=== PATIENT | male | born 1965 | race Caucasian/White ===

== ENCOUNTER 2019-01-10 22:36 | Inpatient (IN) ==
--- NOTE | 2019-01-10 22:43 | PROVIDER DOCUMENTATION ---
HPI-Respiratory General - General Stated Complaint: sob Time Seen by Provider: 01/10/19 22:40 Source: patient, EMS Allergies/Adverse Reactions: Patient Allergies Allergy/AdvReac Type Severity Reaction Status Date / Time No Known Allergies Allergy Verified 01/10/19 23:55 Home Medications: Home Medication List Medication Instructions Recorded Confirmed Last Taken Type Aspirin 325 mg PO DAILY 12/24/18 01/10/19 Unknown History Oxycodone HCl/Acetaminophen 1 tab PO 4XDAY PRN PRN 12/24/18 01/10/19 Unknown History [Percocet 10-325 mg Tablet] - History of Present Illness-Resp Nature of Presenting Problem: 53 YO M with CAD and stent placement presents with acute onset ShOB while lying in bed. He states he called EMS. 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 He denies any recent sick contacts or having these type of symptoms before. He denies chest pain, but states he cannot catch his breath. With EMS, he had low o2 sats in mid 80s and was placed on nonrebreather which improved sats. Pt complaining of pain in right hip that is chronic. he states he takes norco 10, for which he has been on pain meds for more than 25 years. Cough Quality/Degree: reports: no cough Episode Frequency: no prior episodes Current Respiratory Medication Therapy: Initiated none Modifying Factors: improves with: nothing Associated Symptoms: reports: shortness of breath. denies: cough, dizziness, facial pain, fever/chills, headache Similar Symptoms Previously?: No Recently seen or treated by another doctor?: No Review of Systems - Adult - REVIEW OF SYSTEMS - ADULT Constitutional: denies: chills, fever Eyes: reports: no symptoms reported Ears, Nose, Mouth & Throat: reports: no symptoms reported Cardiovascular: reports: no symptoms reported Respiratory: reports: shortness of breath, wheezing. denies: cough Gastrointestinal: reports: no symptoms reported Genitourinary: reports: no symptoms reported Musculoskeletal: reports: no symptoms reported Integumentary: reports: no symptoms reported Neurological: reports: no symptoms reported Past History - Adult - PAST MEDICAL HISTORY-ADULT Review of Records: reports: Old Records Reviewed Major Childhood Illnesses: reports: denies history Cardiovascular: reports: HTN (uncontrolled) Respiratory: reports: denies history Gastrointestinal: reports: denies history Obstetrical/Gynecological: reports: denies history Genitourinary: reports: denies history Musculoskeletal: reports: denies history Neurological: reports: denies history Endocrine/Immune: reports: denies history Other Conditions: reports: denies history - PRIOR SURGERIES/PROCEDURES Surgical/Procedure History: reports: cardiac stent. denies: recent surgery - IMMUNIZATION STATUS Childhood Immunizations: See Nurse Assessment Flu Vaccine: See Nurse Assessment - FAMILY HISTORY Family History: reviewed, not pertinent - SOCIAL HISTORY Smoking: cigarettes, greater than 1 pack/day Substance Use: denies Physical Exam-General - PHYSICAL EXAM-ADULT Initial Vital Signs Reviewed: Yes - CONSTITUTIONAL General Appearance: moderate distress - EYES Eyes: PERRL/EOMI, pink conjunctivae - NECK Neck: full range of motion, supple, normal inspection - RESPIRATORY Respiratory: respiratory distress, accessory muscle use, stridor, wheezing - CARDIOVASCULAR Cardiovascular: no edema, tachycardia - GASTROINTESTINAL (ABDOMEN) Abdominal Exam: non tender, soft - MUSCULOSKELETAL Back Exam: normal inspection, no CVA tenderness Extremity: normal range of motion - SKIN Integumentary: normal color, normal turgor, warm/dry - NEUROLOGIC Neurologic: grossly normal - PSYCHIATRIC Psych/Mental Status: anxious Progress - PLAN OF CARE/RESULTS Progress/Plan/Lab Results: Vital Signs - 8 hr 01/10/19 22:36 01/10/19 22:40 01/10/19 22:41 Temperature 100.3 F H Pulse Rate 138 H 142 H 135 H Respiratory Rate 29 H 37 H 43 H Blood Pressure 156/102 156/102 O2 Sat by Pulse Oximetry 83 L 84 L 01/10/19 22:45 01/10/19 22:50 01/10/19 23:00 Temperature Pulse Rate 134 H 105 H 132 H Respiratory Rate 33 H 22 23 Blood Pressure O2 Sat by Pulse Oximetry 95 97 92 L 01/10/19 23:15 01/10/19 23:30 01/10/19 23:45 Temperature Pulse Rate 122 H 122 H 127 H Respiratory Rate 22 17 20 Blood Pressure O2 Sat by Pulse Oximetry 96 98 01/11/19 00:00 Temperature Pulse Rate 114 H Respiratory Rate 23 Blood Pressure O2 Sat by Pulse Oximetry 98 01/10/19 23:52 Influenza Screen - Final Nasopharyngeal Laboratory Results - last 24 hr 01/10/19 01/10/19 01/10/19 22:42 22:56 22:56 WBC RBC Hgb Hct MCV MCH MCHC RDW Std Deviation Plt Count MPV Immature Gran % (Auto) Neut % (Auto) Lymph % (Auto) [place] % (Auto) Eos % (Auto) Baso % (Auto) Immature Gran # (Auto) Neut # (Auto) Lymph # (Auto) [place] # (Auto) Eos # (Auto) Baso # (Auto) D-Dimer, Quantitative Specimen Type ARTERIAL Sample Site R RADIAL pH 7.47 H pCO2 33 L pO2 64 HCO3 25.4 Base Excess 0.9 Oxyhemoglobin 90.1 L ABG O2 Sat (Calculated) 17.2 ABG O2 Saturation 97.3 ABG Carboxyhemoglobin 6.50 H* ABG Methemoglobin 0.9 Lacho Test YES A-a O2 Difference 251.0 Total Hemoglobin 13.6 Lactate 2.20 Liter Flow 10.0 Blood Gas Modality COOL AEROSOL FiO2 % 50.0 Sodium Potassium Chloride Carbon Dioxide Anion Gap BUN Creatinine Estimated GFR/1.73 m2 BUN/Creatinine Ratio Glucose Calculated Osmolality Calcium Total Bilirubin AST ALT Alkaline Phosphatase Troponin T 0.016 Qki-N-Bgrybhyrojh Pept 3674 H Total Protein Albumin Globulin Albumin/Globulin Ratio TSH 01/10/19 01/10/19 01/10/19 22:56 22:56 22:56 WBC 12.10 H RBC 4.81 Hgb 13.6 L Hct 39.8 L MCV 82.7 MCH 28.3 MCHC 34.2 RDW Std Deviation 13.8 Plt Count 214 MPV 10.2 Immature Gran % (Auto) 0.4 Neut % (Auto) 67.9 Lymph % (Auto) 23.6 [place] % (Auto) 5.6 Eos % (Auto) 1.6 Baso % (Auto) 0.9 H Immature Gran # (Auto) 0.05 H Neut # (Auto) 8.22 H Lymph # (Auto) 2.85 [place] # (Auto) 0.68 H Eos # (Auto) 0.19 Baso # (Auto) 0.11 D-Dimer, Quantitative Specimen Type Sample Site pH pCO2 pO2 HCO3 Base Excess Oxyhemoglobin ABG O2 Sat (Calculated) ABG O2 Saturation ABG Carboxyhemoglobin ABG Methemoglobin [place] Test A-a O2 Difference Total Hemoglobin Lactate Liter Flow Blood Gas Modality FiO2 % Sodium 137 Potassium 4.2 Chloride 97 L Carbon Dioxide 20 L Anion Gap 20 BUN 7 L Creatinine 0.9 Estimated GFR/1.73 m2 > 60 BUN/Creatinine Ratio 8 Glucose 174 H Calculated Osmolality 276 Calcium 8.0 L Total Bilirubin 0.26 AST 28 ALT 32 Alkaline Phosphatase 63 Troponin T Fth-O-Gdmhyecpkbq Pept Total Protein 6.5 Albumin 3.6 Globulin 2.9 Albumin/Globulin Ratio 1.2 TSH 0.88 01/10/19 22:56 WBC RBC Hgb Hct MCV MCH MCHC RDW Std Deviation Plt Count MPV Immature Gran % (Auto) Neut % (Auto) Lymph % (Auto) [place] % (Auto) Eos % (Auto) Baso % (Auto) Immature Gran # (Auto) Neut # (Auto) Lymph # (Auto) [place] # (Auto) Eos # (Auto) Baso # (Auto) D-Dimer, Quantitative 1.42 H Specimen Type Sample Site pH pCO2 pO2 HCO3 Base Excess Oxyhemoglobin ABG O2 Sat (Calculated) ABG O2 Saturation ABG Carboxyhemoglobin ABG Methemoglobin [place] Test A-a O2 Difference Total Hemoglobin Lactate Liter Flow Blood Gas Modality FiO2 % Sodium Potassium Chloride Carbon Dioxide Anion Gap BUN Creatinine Estimated GFR/1.73 m2 BUN/Creatinine Ratio Glucose Calculated Osmolality Calcium Total Bilirubin AST ALT Alkaline Phosphatase Troponin T Huc-V-Plwmftomftg Pept Total Protein Albumin Globulin Albumin/Globulin Ratio TSH Orders Category Date Time Status Cardiac Monitoring DIRECTED Care 01/10/19 22:49 Active CHEST-1 VIEW [RAD] Stat Exams 01/10/19 22:42 Taken CTA [CT ANGIOGRM PULMONARY ARTERIES] [CT] Stat Exams 01/10/19 23:17 Taken ABG [RESP] Routine Lab 01/10/19 22:42 Completed CBC WITH ELECTRONIC DIFF [HEME] Stat Lab 01/10/19 22:56 Completed COMPREHENSIVE METABOLIC PANEL [CHEM] Stat Lab 01/10/19 22:56 Completed D-DIMER [COAG] Stat Lab 01/10/19 22:56 Completed Flu Swab [INFLUENZA SCREEN A/B] Stat Lab 01/10/19 23:52 Completed PRO B-NATRIURETIC PEPTIDE Stat Lab 01/10/19 22:56 Completed TROPONIN T Stat Lab 01/10/19 22:56 Completed TSH Stat Lab 01/10/19 22:56 Completed 0.9% Sodium Chloride Inj [Ns] 1,000 ml Med 01/10/19 23:45 Discontinued IV 999 mls/hr Budesonide [Pulmicort] Med 01/10/19 22:47 Discontinued 0.5 mg INH NOW ONE Furosemide [Lasix] Med 01/11/19 01:34 Discontinued 40 mg IV NOW ONE Ipratropium [place] Neb [Atrovent Neb] Med 01/10/19 22:48 Discontinued 0.5 mg INH NOW ONE Levalbuterol Neb [Xopenex Neb] Med 01/10/19 22:47 Discontinued 1.25 mg INH NOW ONE Methylprednisolone Sod Succ [Solu-Medrol] Med 01/10/19 22:49 Discontinued 125 mg IV NOW ONE Sodium Chloride 0.9% Neb [Ns Neb] Med 01/10/19 23:00 Active 5 ml INH DIRECTED Aerosol Treatments Routine Oth 01/10/19 22:47 Completed Aerosol Treatments Stat Oth 01/10/19 22:47 Completed BIPAP Stat Oth 01/11/19 01:35 Active Oxygen Device Stat Oth 01/10/19 22:49 Completed EKG [EKG] Stat Ther 01/10/19 22:27 Ordered EKG [EKG] Stat Ther 01/10/19 22:42 Draft Patient signed out to me pending reeval. Patient on bipap. Requires admission for new onset CHF. Spoke to Dr Salazar,, avionics engineer for hospitalist who accepted rosa ent for admission. Further orders to be placed by their team. Result Diagrams: 01/10/19 22:56 01/10/19 22:56 - REASSESSMENT Reassessment #1 Time Reassessed: 23:58 Status: improving (pt states he is improving, HR down to 118, positive dimer, will get CTA-PE) - EKG 1 Time of EKG reading by physician:: 22:50 EKG Read and Signed by:: Sadaf Landin EKG Interpretation (*Must complete 3 of following elements*): Abnormal Rate: 129 Rhythm: sinus tachycardia [place]: normal QRS: normal [place] Interval: normal Prior EKG Comparison: no prior EKG (left ventricular enlargement) - CT/MRI 1 CT Study: Thorax Impression: See EMR Report (1. No central PE identified 2. No thoracic aortic aneurysm or dissection 3. small b/l pleural fluid collections seen within the fissures 4. ground glass opacity at the lung bases- pulm edema vs atypical pna 5. mediastinal and right hilar adenopathy 6. focal area of increased density with rounded contour in the posterior lateral aspect of right upper lobe, pulm nodule vs rounded airspace disease) - CONSULTS/PCP/HOSPITALIST Notification #1 *Consult/PCP/Hospitalist*: Dr Salazar Time Discussed: 02:34 Consult Disposition: Admit - CHANGE OF SHIFT REPORT (ED Provider) 1 Report Given and Care Transferred to:: transferred to Dr. Nina Time of Transfer: 02:03 Items Pending: Other (reevaluation) Departure - Departure Date of Disposition Decision: 01/11/19 Time of Disposition Decision: 02:33 DIAGNOSIS: Tachycardia, Tobacco dependence due to cigarettes, New onset of congestive heart failure CHF exacerbation Qualifiers: Heart failure type: systolic Qualified Code(s): I50.23 - Acute on chronic systolic (congestive) heart failure Disposition: ADMITTED INPATIENT 09 Certified Medical Emergency: Emergent Condition: Stable Referrals and Follow-Ups: None,PCP [Primary Care Provider] - - Critical Care Note This patient required my direct & personal management of CC.: Yes Total Time (mins): 75 Critical Care Statement: This patient required my direct personal management to treat or rule out processes, the absence of which, could potentiallly result in sudden, clinically significant life or limb threatening deterioration. Attestation - Physician/ PREETI Attestation Patient care was provided by Advanced Practice Provider:: No The physician spent face to face time with patient:: Yes Advanced Practice Provider documentation review:: Supervising physician onsite and consulted in the evaluation and care of this patient. The physician did have a face to face encounter with the patient.
[2019-01-10] MEDS ORDERED: PULMICORT INH ONE (22:47)
[2019-01-10] MEDS ORDERED: XOPENEX NEB INH ONE (22:47)
[2019-01-10] MEDS ORDERED: ATROVENT NEB INH ONE (22:48)
[2019-01-10] MEDS ORDERED: SOLU-MEDROL IV ONE (22:49)
[2019-01-10] MEDS ORDERED: NS NEB INH SCH (23:00)
[2019-01-10 23:04] LABS: ALLEN TEST YES; BE 0.9 mmoll (-3.0-3.0); BLOOD TYPE ARTERIAL; HCO3-(ACT) 25.4 mmoll (20.0-26.0); METHB 0.9 % (0.0-1.5); O2(CT) 17.2 mL/dL (15.0-23.0); O2HB 90.1 % (95.0-99.0); PCO2(98.6) 33 mmHg (35-45); PO2(98.6) 64 mmHg (60-100); SAMPLE BLOOD; SAO2 97.3 % (95.0-100.0); THB 13.6 g/dL (11.5-17.4); pH(98.6) 7.47 (7.35-7.45)
[2019-01-10 23:05] LABS: MODALITY COOL AEROSOL
--- NOTE | 2019-01-10 23:08 | EKG Report ---
Test Performed on : 01/10/2019 10:39:28 PM Test Reason : SOB Blood Pressure : / mmHG Vent. Rate : 129 BPM Atrial Rate : 129 BPM P-R Int : 138 ms QRS Dur : 096 ms QT Int : 298 ms P-R-T Axes : 052 008 072 degrees QTc Int : 436 ms Sinus tachycardia. Possible Left atrial enlargement Left ventricular hypertrophy with repolarization abnormality Anteroseptal infarct (cited on or before 19-NOV-2015) Abnormal ECG When compared with ECG of 19-NOV-2015 09:30, Questionable change in QRS axis ST no longer elevated in Lateral leads T wave inversion now evident in Lateral leads Unconfirmed Result
[2019-01-10 23:22] LABS: BASO# 0.11 X1000 (0.0-0.2); BASO% 0.9 % (0.0-0.8); EOS# 0.19 X1000 (0.0-0.7); EOS% 1.6 % (0.0-10.0); HEMATOCRIT 39.8 % (42.0-52.0); HEMOGLOBIN 13.6 g/dL (14.0-18.0); IMM GRAN# 0.05 X1000 (0.0-0.04); IMM GRAN% 0.4 % (0.0-0.5); LYMPH# 2.85 X1000 (1.2-3.4); LYMPH% 23.6 % (20.5-51.1); MCH 28.3 PG (27-31); MCHC 34.2 g/dL (33-37); MCV 82.7 FL (81-99); MONO# 0.68 X1000 (0.11-0.59); MONO% 5.6 % (1.7-9.3); MPV 10.2 FL (7.4-10.4); NEUT# 8.22 X1000 (1.4-6.5); NEUT% 67.9 % (42.2-75.2); PLT 214 X1000 (130-400); RBC 4.81 XMIL (4.7-6.1); RDW 13.8 % (11.5-14.5)
[2019-01-10] MEDS ORDERED: NS 1,000 ML IV ONE (23:45)
[2019-01-10 23:57] LABS: AGAP 20; ALB/GLOB RATIO 1.2; ALBUMIN 3.6 g/dL (3.5-5.0); ALKALINE PHOSPHATASE 63 U/L (32-122); BUN 7 mg/dL (8-22); CHLORIDE 97 mmol/L (98-107); COSMO 276; CREATININE 0.9 mg/dL (0.7-1.2); ESTIMATED GFR > 60; GLUCOSE 174 mg/dL (70-104); GOT 28 U/L (10-34); GPT 32 U/L (10-44); POTASSIUM 4.2 mmol/L (3.5-5.1); SODIUM 137 mmol/L (136-145); TCO2 20 mmol/L (25-35); TOTAL BILIRUBIN 0.26 mg/dL (0.20-1.00); TOTAL PROTEIN 6.5 g/dL (6.3-8.3)
[2019-01-11] MEDS ORDERED: LASIX IV ONE (01:34)
[2019-01-11] MEDS: LEVAQUIN 750 MG/D5W 750 MG/150 ML IVPB IV SCH (03:15)
[2019-01-11] MEDS: PERCOCET-10 PO PRN (03:16)
[2019-01-11] MEDS ORDERED: ZOFRAN IV PRN (04:09)
[2019-01-11] MEDS ORDERED: TYLENOL PO PRN (04:09)
[2019-01-11] MEDS ORDERED: LOVENOX SUBQ SCH ×2 (04:09→18:00)
--- NOTE | 2019-01-11 05:27 | HISTORY AND PHYSICAL ---
CHIEF COMPLAINT: Shortness of breath. HISTORY OF PRESENT ILLNESS: Mr. Spicer is a 53-year-old male who had shortness of breath that started around 45 minutes prior to arrival in the emergency room. He states that it was sudden onset, felt as if he could not catch his breath. He is a ioy-qgto-kmh-day smoker. Smoking cessation was gone over with the patient. He states that he does not want to quit. His other past medical history includes myocardial infarction with coronary artery disease, hypertension, hyperlipidemia and cardiac stenting. He also has arthritis that he sees a pain psychology clinician for. From my understanding, I do not believe he treats his high blood pressure or his high cholesterol. As noted, he does smoke still, has for many years. Chest x-ray was obtained in the emergency room. Appears to show increased pulmonary vascular congestion with possible multiple infiltrates. He had an elevated D-dimer so a pulmonary arteriogram was completed. This showed no central PE, no aortic aneurysm or dissection. Small bilateral pleural fluid collection seen within the fissures. Ground glass opacity at the lung bases. Pulmonary edema versus atypical pneumonia. There was also mediastinal and right hilar adenopathy as well as a right upper pulmonary nodule versus round airspace disease. At any rate, he was placed on BiPAP, was given a dose of Lasix and will be admitted for further evaluation and treatment. PAST MEDICAL HISTORY: See HPI. PREVIOUS SURGICAL HISTORY: Cardiac stenting. SOCIAL HISTORY: On disability. Smokes two packs per day. Has for years. Denies wanting to quit. No alcohol. No illicit drugs. Sees a pain clinic. Is on chronic opioid treatment. FAMILY HISTORY: Mother had arthritis. Father had myocardial infarction and coronary artery disease. ALLERGIES: No known drug allergies. HOME MEDICATIONS: Percocet 10 four times a day p.r.n. and aspirin 325 p.o. daily. REVIEW OF SYSTEMS: Fourteen point review of systems conducted with the patient. Pertinent positives listed above in the HPI. All other systems reviewed and found to be negative. PHYSICAL EXAMINATION: VITAL SIGNS: Temperature 100.3, pulse is 98, it was 130 on arrival, respirations 15, blood pressure 133/56, oxygen saturation 98% on BiPAP. GENERAL: A 53-year-old male, appears quite disheveled. He is alert and oriented times 3, in no acute distress, on BiPAP. HEENT: Head is atraumatic, normocephalic. Pupils equal, round, reactive to light. Extraocular eye movement is intact. Sclerae are anicteric. Conjunctiva is pink. Oral mucosa is moist. Poor dentition noted. NECK: Supple. No JVD. Trachea is midline. No cervical lymphadenopathy. CARDIAC: S1, S2 appreciated. No murmurs, gallops, rubs. LUNGS: Clear to auscultation. Decreased bilaterally. No rhonchi, wheezes. Very few scattered crepitations. ABDOMEN: Protuberant. Soft, nondistended, nontender. Bowel sounds present all 4 quadrants, hypoactive. No pulsatile mass. No organomegaly. EXTREMITIES: No clubbing or cyanosis. Trace bilateral lower extremity edema, nonpitting. Two- plus pedal pulses. GENITOURINARY: No bladder distention. Patient voids. Otherwise deferred. NEUROLOGICAL: Alert and oriented times 3. Cranial nerves 2 through 12 grossly intact. DIAGNOSTIC DATA: For the CT, see HPI, as well as the chest x-ray. LABORATORY DATA: WBC 12.10. Hemoglobin 13.6. Hematocrit 39.8. Platelet count 214. D-dimer was 1.42. ABG: pH 7.47, PCO2 33, PO2 64, bicarb 25.4. This was on 50% cool aerosol mask. Sodium 137. Potassium 4.2. Chloride 97. Carbon dioxide 20. BUN 7. Creatinine 0.9. ProBNP 3674. ASSESSMENT AND PLAN: 1. Acute hypoxic respiratory failure. The patient was given Lasix in the emergency room and placed on BiPAP. He was also given DuoNebs and steroids. Will continue DuoNebs. Will hold off on the steroids at this time. Will start the patient on prophylactic antibiotics at this time. It is possible that he does have COPD exacerbation. 2. Questionable atypical pneumonia. This was read on the CT scan. Will diurese the patient and reshoot a PA and lateral chest x-rays. Blood cultures will be obtained and we will start the patient on Levaquin. 3. Probable new onset congestive heart failure. Will order echocardiogram. Lasix 40 mg IV q.24 hours. 4. Hypertension and hyperlipidemia. These appear to be untreated. Will monitor patient's blood pressure, check a lipid profile. 5. Chronic tobacco use. Smoking cessation was gone over with the patient. He denies wanting to quit. Will place a NicoDerm patch on the patient. Further recommendations per patient clinical course. Dictated by CHACORTA Long for Og Salazar MD I have performed a face to face diagnostic evaluation. Labs/ Xrays- reviewed. Exam- Chest- rhonchi, CV- regular. A/P- Acute Respiratory failure, Pneumonia- Admit, BIPAP, Check blood cultures, IV ABX. Dr. Salazar cc: CHACORTA Long MD [facility]
--- NOTE | 2019-01-11 05:53 | Diag Imaging Result Doc PS360 ---
EXAM: CHEST-1 VIEW HISTORY: SOB TECHNIQUE: AP chest single view COMPARISON: 08/09/2012 FINDINGS: The lungs are well expanded. There are increased interstitial markings throughout both lungs. No pleural effusions identified. The heart is borderline mildly prominent. IMPRESSION: Pulmonary edema Electronically signed by Anupam Garcia 01/11/2019 5:50 AM
--- NOTE | 2019-01-11 06:35 | Diag Imaging Result Doc PS360 ---
CT ANGIOGRM PULMONARY ARTERIES - 01/10/2019 INDICATION: acute onset SOB, tachycardia TECHNIQUE: Axial CT images were obtained after administering intravenous contrast. Coronal MIP images were generated. COMPARISON: None FINDINGS: There is profound thinning of the left ventricular myocardium at the ventricular apex, along with fatty metaplasia mainly in the subendocardial tissue. This is compatible with a severe old apical infarction. Heart size is top normal. There is mild nonspecific diffuse mediastinal lymphadenopathy. No pulmonary embolism. There is hazy interstitial pulmonary edema. There is a nodular opacity in the superior segment of the right lower lobe measuring about 1.6 cm. There is trace bilateral pleural fluid. There is a 2.4 cm low-density left adrenal gland nodule compatible with an adenoma. Otherwise upper abdomen appears unremarkable. There are moderate degenerative changes of the spine. No acute or suspicious bony lesion. IMPRESSION: 1. Significant old left ventricular apex infarction with severe thinning of the myocardium. 2. Interstitial pulmonary edema. Trace pleural effusions. 3. Indeterminate nodular density in the right lower lobe. Recommend a follow-up chest CT in about one month, when the patient is better. 4. Left adrenal adenoma. This exam was performed using automated exposure control, adjustment of mA or kV according to patient size, and/or use of iterative reconstruction technique Electronically signed by Raulito Iraheta 01/11/2019 6:33 AM
[2019-01-11 07:43] LABS: CHOLESTEROL 164 mg/dL (0-200); HDL 43 mg/dL (35-55); LDL 107 mg/dL; TRIGLYCERIDES 71 mg/dL (39-160); VLDL 14 mg/dL
--- NOTE | 2019-01-11 07:53 | Diag Imaging Result Doc PS360 ---
EXAM: CHEST-2 VIEWS HISTORY: reeval TECHNIQUE: Two views COMPARISON: 01/10/2019 FINDINGS: The lungs are well expanded. The heart is not enlarged. The vessels are mildly distended. There are no infiltrates. No pleural effusions. IMPRESSION: Mild pulmonary edema. Confusion Electronically signed by Anupam Garcia 01/11/2019 7:51 AM
[2019-01-11] MEDS: LASIX IV SCH ×2 (08:37→22:14)
[2019-01-11] MEDS: NICODERM PATCH TD SCH (08:38)
[2019-01-11] MEDS: DUONEB (A & A) INH SCH ×5 (08:57→23:05)
[2019-01-11] MEDS ORDERED: ASPIRIN PO SCH (09:00)
[2019-01-11] MEDS ORDERED: LASIX IV SCH (09:00)
[2019-01-11] MEDS: HUMALOG SUBQ SCH ×3 (13:05→23:02)
--- NOTE | 2019-01-11 14:06 | ECHO REPORT ---
ORDER DATE: 01/11/2019 ECHOCARDIOGRAPHIC MEASUREMENTS: 1. Interventricular septum 1.1. 2. Left ventricular posterior wall 1.1. 3. Diastolic diameter 7.0. 4. Left atrium 4.5. 5. Aorta 4. SUMMARY: 1. Technically suboptimal study. Optison was used to delineate left ventricular endocardial border. Dilated left ventricle with reduced systolic function. Estimated ejection fraction of 35 to 40 percent. 2. There is apical dyskinesia associated with anteroseptal hypokinesis, cannot rule out small LV thrombus. 3. Aortic valve leaflets are trileaflet. 4. Mitral valve was normal. 5. Tricuspid valve was normal. 6. Pulmonic valve was normal. 7. There is no aortic stenosis or regurgitation. There is mild mitral regurgitation. 8. Mild tricuspid regurgitation. Peak velocity across the tricuspid valve was less than 2 m/sec. 9. There is no pericardial effusion. cc: MD Mainor Ambrose CRNP
--- NOTE | 2019-01-11 14:38 | PROGRESS NOTE ---
DATE: 01/11/2019 INTERVAL HISTORY: The patient is still short of breath with fairly minimal exertion, but improving from admission. Still some largely nonproductive cough. One low-grade fever to 100.3. Otherwise no acute events overnight. No new complaints. REVIEW OF SYSTEMS: A 12-point review of systems is negative, except as per interval history. LABORATORY DATA: Admission WBC 12.1. ABG with pH of 7.47, pCO2 of 33, PO2 of 64. Glucose 174. Troponin negative x3. ASSESSMENT AND PLAN: Patient admitted with dyspnea and hypoxia with oxygen saturation in the mid 80s. Found to have possible small pneumonia, but more significantly pulmonary edema. BNP elevated. Suspicion was for a new diagnosis of congestive heart failure. Ejection fraction obtained showing ejection fraction of 30 to 40, confirming acute systolic congestive heart failure. However, there was also concern for intracardiac thrombus. Discussed with Cardiology, who we will consult. They recommend to go ahead and start him on full anticoagulation, which we will do. Symptomatically, the patient is improving with antibiotics with Levaquin and Lasix, which we will continue. Will keep diuresing, and wean oxygen as tolerated.
[2019-01-11] MEDS: PERCOCET-5 PO PRN (16:21)
--- NOTE | 2019-01-11 19:39 | CARDIOLOGY CONSULTATION ---
DATE: 01/11/2019 INDICATION FOR THE CONSULTATION: LV thrombus heart failure. HISTORY OF PRESENT ILLNESS: Mr. Spicer is a 53-year-old gentleman with a history of coronary disease, ischemic cardiomyopathy, previously seeing Dr. Stone in April 2016 in [place]. The patient has not been back to see him in some time. He presented for evaluation of shortness of breath that woke him from sleep around 1 hour after he went to bed last night. He denies any overt chest pain. He said he caught his breath after around 1 hour. He continues to smoke. He has not been compliant with his medications. Overall, he otherwise denies any other acute complaints. PAST MEDICAL HISTORY: 1. Significant for coronary disease with an anterior myocardial infarction in November 2015. On that study, he had a normal left main. His circumflex had a mid OM 40% lesion and a proximal 30% lesion. His LAD was occluded proximally at the diagonal and was treated with a stent with a residual stenosis of less than 10%. His diagonal had an ostial 50% lesion. His RCA had mid diffuse 30 to 50 percent disease. His EF on that study was 40%. 2. Hypertension. 3. Hyperlipidemia. 4. Continued tobacco abuse. 5. Chronic back pain. SOCIAL HISTORY: He continues to smoke. He denies any alcohol. FAMILY HISTORY: Significant for arthritis in his mother. Father had a myocardial infarction. REVIEW OF SYSTEMS: A 10 system review of systems is negative except for those mentioned in HPI. PHYSICAL EXAMINATION: Vital Signs: His T-max was 100.3 degrees. Heart rate 93, blood pressure 134/74. General: He is in no acute distress. HEENT: Oropharynx is moist. Poor dentition. His eye examination shows pink conjunctivae. White sclerae. Neck: Examination shows no obvious thyromegaly or thyroid tenderness. Cardiovascular: He sounds to be in a regular rate and rhythm. He has no obvious murmurs. He has no S3. He has no lower extremity edema. Chest: Exam sounds clear bilaterally. He has no increased work of breathing. Abdomen: Soft, nontender, nondistended. He has no obvious organomegaly. Skin: Warm and dry throughout without any rashes. Neurological: He is moving all extremities well. He has no lateralizing deficits. PERTINENT DATA: His echocardiogram on presentation shows sinus tachycardia. Rate of 129 beats per minute. He has evidence for an anterior lateral myocardial infarction. This is old as reviewed by old EKGs. His echocardiogram demonstrated an EF of 35 to 40 percent. There was apical dyskinesis with anterior septal hypokinesis with suggestion of a possible small LV thrombus. His pulmonary arteriogram demonstrated a left ventricular apical infarction, interstitial pulmonary edema. Indeterminate nodular density in the right lower lobe. A left adrenal adenoma. His lab data shows a white count of 12, hematocrit 39, platelet count 214,000. His D-dimer was 1.4. His ABG was reviewed. His sodium is 137. Potassium 4.2. BUN 7, creatinine 0.9, proBNP is 3674. His LDL was 107, HDL 43. TSH 0.88. ASSESSMENT: Mr. Spicer is a 53-year-old, who presented with complaints of shortness of breath. PLAN: His ejection fraction appears to be stable from old. He does have evidence for a left ventricular apical thrombus. At this point, we will try to re-initiate heart failure treatment by starting him on losartan. He is already on IV diuretics. I will discontinue the Lovenox and place him on apixaban at a dose of 10 mg b.i.d. for 1 week followed by 5 mg b.i.d. I have put in an order to reflect this. We will reduce his aspirin to 81 mg. Hopefully, we can re-initiate beta blockers in the near future. I have counseled the patient to quit smoking. cc: Booker Mancuso MD MTDD
[2019-01-11] MEDS: ELIQUIS PO SCH (22:14)
[2019-01-11] MEDS: LIPITOR PO SCH (22:15)
[2019-01-12] MEDS: DUONEB (A & A) INH SCH ×4 (03:25→21:10)
[2019-01-12] MEDS: LEVAQUIN 750 MG/D5W 750 MG/150 ML IVPB IV SCH (03:32)
[2019-01-12] MEDS: HUMALOG SUBQ SCH ×3 (06:25→16:36)
[2019-01-12 07:36] LABS: BASO# 0.04 X1000 (0.0-0.2); BASO% 0.3 % (0.0-0.8); EOS# 0.04 X1000 (0.0-0.7); EOS% 0.3 % (0.0-10.0); HEMATOCRIT 40.4 % (42.0-52.0); HEMOGLOBIN 13.3 g/dL (14.0-18.0); IMM GRAN# 0.05 X1000 (0.0-0.04); IMM GRAN% 0.4 % (0.0-0.5); LYMPH% 25.8 % (20.5-51.1); MCH 27.6 PG (27-31); MCHC 32.9 g/dL (33-37); MCV 83.8 FL (81-99); MONO# 0.87 X1000 (0.11-0.59); MONO% 7.5 % (1.7-9.3); MPV 10.2 FL (7.4-10.4); NEUT# 7.65 X1000 (1.4-6.5); NEUT% 65.7 % (42.2-75.2); PLT 236 X1000 (130-400); RBC 4.82 XMIL (4.7-6.1); RDW 14.1 % (11.5-14.5); WBC 11.65 X1000 (4.8-10.8)
[2019-01-12 07:43] LABS: HEMOGLOBIN A1C 6.1 % (4.8-6.0)
[2019-01-12 08:07] LABS: AGAP 13; BUN 14 mg/dL (8-22); CALCIUM 8.5 mg/dL (8.8-10.2); CHLORIDE 100 mmol/L (98-107); COSMO 278; CREATININE 0.8 mg/dL (0.7-1.2); ESTIMATED GFR > 60; GLUCOSE 163 mg/dL (70-104); POTASSIUM 3.7 mmol/L (3.5-5.1); SODIUM 137 mmol/L (136-145); TCO2 24 mmol/L (25-35)
[2019-01-12 08:15] LABS: BANDS 2 % (0-1); EOS 2 % (1-10); LARGE PLATELETS 2+; LYMPHS 30 % (21-51); MONO 4 % (1-9); SEGS 62 % (42-75)
[2019-01-12] MEDS: ELIQUIS PO SCH ×2 (09:48→22:15)
[2019-01-12] MEDS: COZAAR PO SCH (09:48)
[2019-01-12] MEDS: ASPIRIN PO SCH (09:48)
[2019-01-12] MEDS: LASIX IV SCH ×2 (09:48→22:16)
[2019-01-12] MEDS: NICODERM PATCH TD SCH (09:48)
[2019-01-12] MEDS: PERCOCET-10 PO PRN (09:50)
[2019-01-12] MEDS: PERCOCET-5 PO PRN ×2 (14:10→20:39)
[2019-01-12] MEDS ORDERED: FLEXERIL PO PRN (14:32)
--- NOTE | 2019-01-12 15:46 | PROGRESS NOTE ---
DATE: 01/12/2019 SUBJECTIVE: The patient is resting comfortably in bed. He is not complaining of chest pain or shortness of breath at this moment. As per the patient, he presented with severe shortness of breath, acute hypoxemic respiratory failure, possible bronchitis versus pneumonia. Echocardiogram showed a low ejection fraction at 35 to 40% and there is evidence for a left ventricular apical thrombus per Cardiology Department. He has been started on anticoagulation. OBJECTIVE: Vital Signs: Temperature 97.5 degrees, pulse 94, respiratory rate 18, blood pressure 148/87, oxygen saturation 96 on room air. HEENT: Head normocephalic. No trauma. PERRLA. Neck: Supple. No JVD. No masses. Central trachea. Chest: Clear to auscultation. Some crepitus and rales at the bases. Abdomen: Soft, nontender, nondistended. No hepatosplenomegaly. Extremities: No edema. No clubbing. No cyanosis. Neurological: The patient is alert. He is oriented x3. No focal deficits. LABORATORY: WBC 11.6, hemoglobin 13.3, hematocrit 40.4, and platelets 236,000. Sodium 137, potassium 3.7, chloride 100, bicarbonate 24, BUN 14, creatinine 0.8, glucose 163, calcium 8.5, hemoglobin A1c 6.1. ASSESSMENT AND PLAN: 1. Acute hypoxemic respiratory failure, due to pulmonary edema due to congestive heart failure exacerbation. We will continue with Lasix twice a day. He seems to be getting better. 2. Acute congestive heart failure exacerbation. Continue with diuretics. He has been seen by Cardiology and placed on losartan. Likely we need to start this patient also on beta blockers. 3. Left ventricular apical thrombus. He has been started on anticoagulation. We will continue with same management. 4. Questionable atypical pneumonia. Continue with the same management. 5. Hypertension and hyperlipidemia. Continue with atorvastatin. Continue with blood pressure medication as well. 6. Tobacco abuse. This patient has been highly advised against tobacco use. I will continue with daily cessation education. 7. Likely prediabetes with a hemoglobin A1c 6.1. Diet and exercise has been discussed. cc: Isai Galdamez MD
[2019-01-12] MEDS: LIPITOR PO SCH (22:15)
[2019-01-12] MEDS: COREG PO SCH (22:31)
--- NOTE | 2019-01-12 22:41 | CARDIOLOGY PROGRESS NOTE ---
DATE: 01/12/2019 SUBJECTIVE: Mr. Spicer reports his breathing has improved significantly. OBJECTIVE: On physical examination he is afebrile. Heart rate 90, blood pressure 149/73. His intake and output are poorly tracked, as he has multiple voids not measured. Generally he is no acute distress. Cardiovascular: He sounds to be in a regular rate and rhythm. He has no obvious murmurs. He has no S3. He has no lower extremity edema. His chest exam is clear bilaterally. He has no increased work of breathing. Abdomen is soft and nontender. LABORATORY DATA: White count 11.6, hematocrit 40, platelet count is 236,000. His sodium is 137, potassium 3.7, BUN 14, creatinine 0.8. ASSESSMENT: Mr. Spicer is a 53-year-old gentleman with ischemic cardiomyopathy who also appears to have a left ventricular thrombus. PLAN: At this point we will continue with diuresis. He is on apixaban for the thrombus as well as aspirin for the history of coronary disease. I have started a low dose of carvedilol, along with his already in place dose of losartan. I believe he would likely be suitable for discharge within the next 24 to 48 hours. His basic metabolic panel, magnesium and proBNP have been ordered for the morning. cc: Booker Mancuso MD
[2019-01-13] MEDS: HUMALOG SUBQ SCH ×3 (02:32→10:42)
[2019-01-13] MEDS: DUONEB (A & A) INH SCH ×2 (03:17→10:36)
[2019-01-13] MEDS: PERCOCET-5 PO PRN ×2 (03:39→09:42)
[2019-01-13] MEDS: LEVAQUIN 750 MG/D5W 750 MG/150 ML IVPB IV SCH (03:54)
[2019-01-13 08:05] LABS: HEMATOCRIT 42.9 % (42.0-52.0); HEMOGLOBIN 14.4 g/dL (14.0-18.0); MCH 28.2 PG (27-31); MCHC 33.6 g/dL (33-37); MCV 84.1 FL (81-99); MPV 9.9 FL (7.4-10.4); RBC 5.1 XMIL (4.7-6.1); RDW 14.6 % (11.5-14.5); WBC 8.96 X1000 (4.8-10.8)
[2019-01-13] MEDS: ELIQUIS PO SCH (08:38)
[2019-01-13] MEDS: NICODERM PATCH TD SCH (08:38)
[2019-01-13] MEDS: ASPIRIN PO SCH (08:38)
[2019-01-13] MEDS: COZAAR PO SCH (08:38)
[2019-01-13] MEDS: COREG PO SCH (08:38)
[2019-01-13] MEDS: LASIX IV SCH (08:38)
[2019-01-13 11:39] VITALS: BP 133/90
--- NOTE | 2019-01-14 14:31 | DISCHARGE SUMMARY ---
ADMISSION DATE: 01/11/2019 DISCHARGE DATE: 01/13/2019 DISCHARGE DIAGNOSES: 1. Acute hypoxemic respiratory failure due to pulmonary edema due to congestive heart failure exacerbation. 2. Acute CHF exacerbation. 3. Left ventricular apical thrombus. 4. Questionable atypical pneumonia. 5. Hypertension and hyperlipidemia. 6. Tobacco abuse. 7. Prediabetes. PROCEDURES PERFORMED: Chest x-ray dated 01/10/2019, impression: Pulmonary edema. CT angiogram dated 01/10/2018, impression: Significant old left ventricular infarction with severe thinning of the myocardium, interstitial pulmonary edema, trace pleural effusion, indeterminate nodular density in the right lower lobe. Left adrenal adenoma. Echocardiogram dated 01/11/2019, ejection fraction 35 to 40 percent. There is apical dyskinesia associated with anteroseptal hypokinesis, cannot rule out small left ventricular thrombus, chest x- ray dated 01/11/2019, impression: Mild pulmonary edema. CONSULT: Cardiology Department, Dr. Booker Mancuso. HOSPITAL COURSE: A 53-year-old male with a past medical history of tobacco abuse, [place] with coronary artery disease, hypertension, hyperlipidemia, and cardiac stenting, arthritis, hypertension, and dyslipidemia, admitted on 01/11/2019, apparently he started having shortness of breath that started around 45 minutes prior to arrival to the emergency room, chest x-ray in the emergency room showed pulmonary vascular congestion with pulmonary edema. He had an elevated D- dimer and also pulmonary artery arteriogram was completed but did not show any PE, no aortic aneurysm or dissection. There was also mediastinal and right hilar adenopathy, as well as right upper pulmonary nodule versus round airspace disease, he received Lasix. He was transferred to the floor with telemetry, echocardiogram showed an ejection fraction of 35 to 40 percent. He started to feel much better after getting diuretics. Cardiology Department evaluated this patient and they placed this patient on ARBs and also beta blockers, and of course we continue with diuretics. Today, this patient is feeling much better. He is tolerating p.o. He is ambulating. He is no longer requiring oxygen, we had a really large conversation about smoking cessation and he seems to understand, and it looks like he is going to stop completely. He will need to follow up with Dr. Mancuso in 3 to 4 weeks. We did an echocardiogram that also showed some apical thrombus, so he was started also on anticoagulation with Eliquis, and we will continue with that at home, like I mentioned before follow up with Cardiology Department in 3 to 4 weeks. PHYSICAL EXAMINATION: Temperature 98.1 degrees, pulse 92, respiratory rate 22, blood pressure 133/90, oxygen saturation 97% on room air. HEENT: Head normocephalic, no trauma. PERRLA: Neck is supple. No JVD. No masses. Central trachea. Chest: Clear to auscultation. Some mild rales at the bases. Abdomen soft, nontender, nondistended. No hepatosplenomegaly. Extremities: No edema, no clubbing, no cyanosis. Neurological: The patient is alert. He is oriented. No focal deficits. LABORATORY: WBC 8.9, hemoglobin 14.4, hematocrit 42.9, platelet count 259,000. DISCHARGE MEDICATIONS: Apixaban 10 mg p.o. b.i.d. to complete one week and then 5 mg p.o. twice a day, aspirin 81 mg p.o. daily, Lipitor 40 mg p.o. at bedtime, carvedilol 3.125 mg p.o. b.i.d., Flexeril 10 mg p.o. t.i.d. as needed, furosemide 40 mg p.o. daily, losartan 25 mg p.o. daily, Percocet 10/325 mg tablet 4 times a day as needed. cc: Isai Galdamez MD MTDD
[2019-01-18] MEDS ORDERED: ELIQUIS PO SCH (21:00)
== END 2019-01-13 13:46 | disposition home or self-care (01) | DRG 291 ==
LOC: ED 22:36 → SUATTDRO 01-11 03:59 → 3N 01-11 03:59
PROVIDERS: ATTEND Internal Medicine